=== PATIENT | female | born 1980 ===

== ENCOUNTER 2024-02-21 19:02 | Emergency (ER) | payer BC ==
[2024-02-21 20:41] VITALS: BP 127/85; PULSE 85
[2024-02-21 20:44] LABS: CORONAVIRUS COVID-19 NAA POSITIVE (NEGATIVE); INFLUENZA A NAA NEGATIVE (NEGATIVE); INFLUENZA B NAA NEGATIVE (NEGATIVE)
[2024-02-21] MEDS: Acetaminophen/Codeine 120-12 MG/5 ML Soln 5 ML UD Cup PO ONE (21:21)
[2024-02-21] MEDS: Acetaminophen/Codeine 300-30 MG Tab PO ONE (21:22)
== END 2024-02-21 21:27 | disposition home or self-care (01) ==
LOC: MW.ED 19:02
DX: U07.1 COVID-19 (principal); K21.9 Gastro-esophageal reflux disease without esophagitis; E66.9 Obesity, unspecified; Z79.899 Other long term (current) drug therapy; Z91.013 Allergy to seafood; Z88.5 Allergy status to narcotic agent; Z88.1 Allergy status to other antibiotic agents; Z88.8 Allergy status to other drugs, medicaments and biological substances; Z68.32 Body mass index [BMI] 32.0-32.9, adult
CPT/HCPCS: 0240U; 99284; A9270